=== PATIENT | female | born 1955 ===

== ENCOUNTER 2023-01-03 12:45 | Emergency (ER) | payer MEDICARE, SELFPAY ==
[2023-01-03 13:02] VITALS: BP 118/81; PULSE 64; RESP 18; TEMP 37.2; O2SAT 95
--- NOTE | 2023-01-03 13:17 | CRLHL7_ITS ---
For Patients: As a result of the Cures Act, medical imaging exams and procedure reports are released immediately into your electronic medical record. You may view this report before your referring provider. If you have questions, please contact your health care provider. HISTORY: Fall, deformity of the 5th finger. TECHNIQUE: Two views of the 5th finger of the right hand. COMPARISON: No prior. FINDINGS: There is an acute angulated and moderately displaced fracture of the proximal metaphysis of the proximal phalanx of the 5th finger of the right hand. The middle and distal phalanges appear intact. 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 IMPRESSION: Acute moderately displaced and angulated fracture of the proximal metaphysis of the proximal phalanx of 5th finger of the right hand. Dictated by Celso Barron MD @ 01/03/2023 2:45:54 PM Dictated by: Celso Barron MD @ 01/03/2023 14:46:01 (Electronically Signed)
--- NOTE | 2023-01-03 13:17 | CRLHL7_ITS ---
For Patients: As a result of the Cures Act, medical imaging exams and procedure reports are released immediately into your electronic medical record. You may view this report before your referring provider. If you have questions, please contact your health care provider. INDICATION: Fall TECHNIQUE: Views of the right wrist FINDINGS: Arthritic changes of the wrist. Normal alignment no acute fractures seen. Dictated by Shira Pinzon MD @ 01/03/2023 2:46:30 PM (Electronically Signed)
[2023-01-03] MEDS: ACETAMINOPHEN 500 MG TABLET 1000 MG PO (13:35)
[2023-01-03] MEDS: OXYCODONE 5 MG TABLET PO (14:17)
--- NOTE | 2023-01-03 14:44 | ED.NURSE ---
pt received nerve block prior to MD resetting the pt bone. Pt reports improved pain.
--- NOTE | 2023-01-03 14:54 | CRLHL7_ITS ---
For Patients: As a result of the Cures Act, medical imaging exams and procedure reports are released immediately into your electronic medical record. You may view this report before your referring provider. If you have questions, please contact your health care provider. INDICATION: Fracture. Postreduction. TECHNIQUE: Two views of the right 5th finger. COMPARISON: Earlier today. IMPRESSION: Again seen is a transversely oriented fracture through the proximal metaphyseal and diaphyseal junction of the 5th proximal phalanx, with slight radial displacement of the shaft relative to the base, which has slightly improved in the interval. There is also ulnar-sided and dorsal impaction, which results in a mild to moderate angular deformity. This also has slightly improved in the interval. Dictated by Abiodun Rashid MD @ 01/03/2023 4:28:39 PM (Electronically Signed)
--- NOTE | 2023-01-03 15:13 | ED_ITS ---
[facility] - General Adult General Date Seen: 01/03/23 Chief complaint: Extremity Pain/Injury, Upper Stated complaint: Dislocated finger Time Seen by Provider: 01/03/23 13:14 Source: patient Mode of arrival: ambulatory Limitations: no limitations History of Present Illness HPI narrative: Patient is a 67-year-old female presented emergency department for injuries to her right hand and right 5th finger. She says she was at her daughter's house when she tripped and fell landing on her right hand. This is noticeable deformity to her right 5th finger. She has also been pain to her right wrist. No other injuries noted. She states she has not hit her head. Denies numbness or weakness at this time. Related Data Home Medications Medication Instructions Recorded Confirmed Wellbutrin 01/03/23 citalopram 20 mg tablet (Celexa) 10 mg PO DAILY 01/03/23 01/03/23 metoprolol succinate 25 mg 12.5 mg PO DAILY 01/03/23 01/03/23 tablet,extended release 24 hr triamterene 37.5 1 cap PO DAILY 01/03/23 01/03/23 mg-hydrochlorothiazide 25 mg capsule Previous Rx's Medication Instructions Recorded oxycodone 5 mg tablet 5 mg PO Q6H PRN pain #12 tabs 01/03/23 Allergies Allergy/AdvReac Type Severity Reaction Status Date / Time No Known Drug Allergies Allergy Verified 01/03/23 13:07 Review of Systems Narrative: Negative unless stated in HPI [facility] Social History Smoking Status: Never smoker Do you use any of these nicotine containing products: None How often do you have a drink containing alcohol: never How often do you have six or more drinks on one occasion: Never AUDIT-C Alcohol total score: 0 Non-prescribed substance use: denies use service: No Exam Narrative: Exam Narrative: Const: Well-nourished, Well-developed, in mild distress Eyes: PERRL, no conjunctival injection, and symmetrical lids ENMT: Atraumatic external nose and ears. Moist mucous membranes. MSK: Deformity noted to the right 5th finger. Tenderness noted at the base of the right 5th finger. There is no to the right wrist. No other tenderness or d eformities Skin: Warm, Dry. No rashes or lesions. Neuro: Normal Muscle tone, No focal neurological deficits. Psych: Awake, Alert, & Oriented x3. Appropriate mood and affect. Const: Vital Signs, click to edit/add: Vital Signs - 24 hr 01/03/23 13:02 Temperature 98.9 F Pulse Rate [Right Pulse Oximeter] 64 Respiratory Rate 18 Blood Pressure [Ri ght Upper Arm] 118/81 Pulse Oximetry 95 Oxygen Delivery Me thod Room Air Course Vital Signs Vital signs: Initial Vital Signs Temperature 98.9 F 01/03/23 13:02 Temperature Source Temporal Artery Scan 01/03/23 13:02 Pulse Rate 64 01/03/23 13:02 Respiratory Rate 18 01/03/23 13:02 Blood Pressure 118/81 01/03/23 13:02 Blood Pressure Mean 93 01/03/23 13:02 Blood Pressure Position Sitting 01/03/23 13:02 Pulse Oximetry 95 01/03/23 13:02 Oxygen Delivery Method Room Air 01/03/23 13:02 Vital Signs Temperature 98.9 F 01/03/23 13:02 Pulse Rate 64 01/03/23 13:02 Respiratory Rate 18 01/03/23 13:02 Blood Pressure 118/81 01/03/23 13:02 Pulse Oximetry 95 01/03/23 13:02 Oxygen Delivery Method Room Air 01/03/23 13:02 Temperature 98.9 F 01/03/23 13:02 Pulse Rate 64 01/03/23 13:02 Respiratory Rate 18 01/03/23 13:02 Blood Pressure 118/81 01/03/23 13:02 Pulse Oximetry 95 01/03/23 13:02 Oxygen Delivery Method Room Air 01/03/23 13:02 Medical Decision Making [facility] Narrative Medical decision making narrative: Patient is a 67-year-old female presenting emergency department for right hand pain. There is a an obvious deformity of her right 5th finger. Also pain to her right wrist. Patient given Tylenol oxycodone for pain. X-rays of the finger and wrist were ordered. No acute abnormalities of the wrist. There is a in angulated displaced fracture at the base of the right 5th finger. Hematoma block and nerve block were done with great success. Was able to manipulate the finger and reduce it. Repeat x-ray was done reviewed by myself showing still displaced fracture but improved. She still numb at this time and we did try to reduce it again. This point I was able to hear an audible click and it now looks to be in good place. Finger looks straight at this time. She is otherwise doing well we discharged home with oxycodone. She will follow-up with orthopedics. I do not believe repeat imaging is necessary at this time Imaging Data X-ray right wrist: Radiologist's impression: INDICATION: Fall TECHNIQUE: Views of the right wrist FINDINGS: Arthritic changes of the wrist. Normal alignment no acute fractures seen. Dictated by Shira Pinzon MD @ 01/03/2023 2:46:30 PM X-ray right 5th finger: Radiologist's impression: HISTORY: Fall, deformity of the 5th finger. TECHNIQUE: Two views of the 5th finger of the right hand. COMPARISON: No prior. FINDINGS: There is an acute angulated and moderately displaced fracture of the proximal metaphysis of the proximal phalanx of the 5th finger of the right hand. The middle and distal phalanges appear intact. 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 IMPRESSION: Acute moderately displaced and angulated fracture of the proximal metaphysis of the proximal phalanx of 5th finger of the right hand. Dictated by Celso Barron MD @ 01/03/2023 2:45:54 PM Discharge Plan Discharge Clinical Impression: Finger fracture, right Qualifiers: Encounter type: initial encounter Finger: little finger Fracture type: closed Phalanx: proximal Fracture alignment: displaced Qualified Code(s): S62.616A - Displaced fracture of proximal phalanx of right little finger, initial encounter for closed fracture Patient Disposition: Home, Self-Care Condition: Stable Instructions: Finger Fracture (ED) Additional Instructions: Follow-up with orthopedics in the next few days. Return for new worsening symptoms. Return emergency department if the finger becomes numb or starts turning purple. Take Tylenol and ibuprofen for pain. If that is not enough he can use the oxycodone provided. Prescriptions: New oxycodone 5 mg tablet 5 mg PO Q6H PRN (Reason: pain) Qty: 12 0RF No Action triamterene-hydrochlorothiazid 37.5-25 mg capsule 1 cap PO DAILY Wellbutrin citalopram [Celexa] 20 mg tablet 10 mg PO DAILY metoprolol succinate 25 mg tablet extended release 24 hr 12.5 mg PO DAILY Follow Up/Referrals: Provider,Not a Local [Primary Care Provider] - [facility] Procedures Orthopedic Fracture Reduction right 5th finger: Fracture location: finger (Fifth proximal phalanx) Analgesia: hematoma block and nerve block Technique: direct manipulation Post Reduction X-rays Demonstrate: acceptable reduction Post-reduction neuro exam: intact Post-reduction vascular exam: intact Splint Applied: Yes Patient Tolerated Procedure: well
== END 2023-01-03 15:30 | disposition home or self-care (01) ==
PROVIDERS: Emergency Provider Student in an Organized Health Care Education/Training Program
DX: S62.616A Displaced fracture of proximal phalanx of right little finger, initial encounter for closed fracture (principal); W22.8XXA Striking against or struck by other objects, initial encounter
CPT/HCPCS: 26725; 29130; 73110; 73140; 99283; 99284; A9270